=== PATIENT | male | born 1980 | race Caucasian/White ===

== ENCOUNTER 2020-09-14 15:49 | Emergency (ER) | payer BC, SELFPAY ==
[2020-09-14 15:50] VITALS: BP 149/119; PULSE 65; RESP 18; TEMP 36.4; O2SAT 98; BMI 39.0
--- NOTE | 2020-09-14 16:04 | CT_ITS ---
STUDY: CT ABDOMEN AND PELVIS WITHOUT CONTRAST REASON FOR EXAM: Male, 40 years old. LEFT FLANK PAIN X 2 DAYS. RADIATION DOSAGE (If Supplied By Facility): CTDIvol = ( 17.06 ) mGy, DLP = ( 1296.18 ) mGycm TECHNIQUE: Transaxial images were obtained from the dome of the diaphragm to the symphysis pubis without oral contrast, and without intravenous contrast. Sagittal and coronal images were reconstructed. Individualized dose optimization techniques were used for this CT. COMPARISON: None. FINDINGS: There is mild right lower lobe atelectasis.. The visualized portions of the heart are within normal limits. Small hiatal hernia is noted Liver is normal in size. There is a small solid nodule in the right lobe most likely representing hemangioma. This may be further assessed with MRI if clinically warranted. Bile ducts are not dilated. Contracted thick-walled gallbladder likely physiologic however if concern for gallbladder disease ultrasound recommended.. Normal spleen. Normal pancreas. Normal bilateral adrenal glands. Normal right kidney. Normal left kidney. Mild concentric thickening of the currie of the stomach possibly representing gastritis.. Normal small intestine. Normal colon. The appendix is visualized and appears normal. Normal abdominal aorta. Normal inferior vena cava. Normal retroperitoneum. Nonspecific enlargement of the prostate in association with incompletely distended thick-walled bladder.. Normal abdominal wall. Normal osseous structures. CT/Abdomen/Pelvis W IV Cont ONLY IMPRESSION: Findings which may be consistent with nonspecific gastritis.. No evidence for small bowel obstruction. Small solid nodule in the right lobe of the liver possibly representing hemangioma. This may be further assessed with MRI if indicated clinically. Nonspecific enlargement of prostate in association with incompletely distended thick-walled bladder of uncertain etiology or significance Electronically Signed: Paresh Hall MD at 17:55 EDT , Service support ,
--- NOTE | 2020-09-14 16:05 | ED.DCSUM_ITS ---
History of Present Illness Chief Complaint: Flank Pain Informant: Patient Onset: Days Context: Gradual Onset Timing: Continuous Narrative: Patient is a 40-year-old male history of hypertension presenting with 2 days of constant left-sided flank pain. Patient states sometimes radiates to his back. It is throbbing in nature. Patient notes it seems to be better when he lays on his left side and worse when he changes positions or is active. Notes last night he did have some chills and could not sleep all night because he could not get comfortable and the pain went resolved. Has not taken anything for the pain prior to arrival. He denies associated nausea, vomiting or GI symptoms. He denies any history of kidney stones. Denies any urinary symptoms such as hematuria, dysuria or frequency. He denies any pain in his testicles or genitalia. No other complaints at this time. Prior similar symptoms: Yes - Self resolved, couple months ago Past Medical History - Allergies and Home Meds Allergies/Adverse Reactions: Allergies No Known Allergies Allergy (Verified 09/14/20 15:51) Primary Care Physician: Valentin Pnio MD [Primary Care Provider] - Past Medical History: - - Hypertension Surgical History: - - Hernia repair Lives: With Family Review of Systems General: Denies: Chills, Fever, Sweats Eyes: Denies: Visual changes - bilaterally, Diplopia ENT: Denies: Rhinorrhea, Sore throat Cardiovascular: Denies: Chest pain, Palpitations Respiratory: Denies: Dyspnea, Cough, Dyspnea on exertion Gastrointestinal: Reports: Abdominal pain - Left flank. Denies: Nausea, Vomiting, Diarrhea, Melena, Hematochezia Genitourinary: Denies: Dysuria, Hematuria, Frequency Musculoskeletal: Denies: Back pain, Extremity Pain Skin: Denies: Rash, Wounds Neurological: Denies: Headache, Weakness, Numbness Physical Exam Vital Signs/Narrative: Vital Signs Temp Pulse Resp BP Pulse Ox 09/14/20 15:50 97.6 F L 65 18 149/119 H 98 Inital Vital Signs reviewed: Yes General: Well nourished, Well developed, No Acute Distress Head: Normocephalic, Atraumatic Eyes: Perrl, EOMI ENT: Moist mucous membranes, No rhinorrhea Neck: Supple, Nontender Cardiovascular: Regular rate, Regular rhythm, No murmurs Respiratory: No distress, CTA bilaterally, Chest nontender Abdomen: Soft, Nontender, Nondistended, Normal bowel sounds, - - Mild tenderness palpation of the left flank area with no appreciated mass or hernia palpated. No rebound tenderness.. Negative for: Guarding, Mass Back: Nontender, Normal Inspection. Negative for: CVA tenderness, Spinal tenderness Extremities: Nontender, No edema Skin: Normal color, No rash Neurological: Alert, Oriented x3, Cranial nerves II-XII grossly intact, Normal Strength, Normal Sensation Psychological: Normal affect, Normal Mood Diagnostic/Tx/Re-eval Clinical Impression(s) from Imaging Studies Abdomen/Pelvis CT 09/14/20 16:04 IMPRESSION: Findings which may be consistent with nonspecific gastritis.. No evidence for small bowel obstruction. Small solid nodule in the right lobe of the liver possibly representing hemangioma. This may be further assessed with MRI if indicated clinically. Nonspecific enlargement of prostate in association with incompletely distended thick-walled bladder of uncertain etiology or significance Electronically Signed: Paresh Hall MD at 17:55 EDT , Service support , Laboratory Data 09/14/20 09/14/20 09/14/20 16:18 16:18 16:18 WBC 7.5 RBC 5.01 Hgb 14.4 Hct 43.2 MCV 86.2 MCH 28.7 MCHC 33.3 RDW Std Deviation 49.4 H RDW Coeff of Cat 15.8 H Plt Count 365 MPV 9.7 Immature Gran % (Auto) 0.300 Neut % (Auto) 50.1 Lymph % (Auto) 33.0 [place] % (Auto) 11.6 H Eos % (Auto) 4.3 Baso % (Auto) 0.7 Absolute Neuts (auto) 3.8 Absolute Lymphs (auto) 2.47 Nucleated RBC % 0 Sodium 141 Potassium 3.8 Chloride 108 H Carbon Dioxide 27.0 Anion Gap 6 BUN 12 Creatinine 1.08 Estim Creat Clear Calc 94.90 Est GFR (MDRD) Af Amer 96 Est GFR (MDRD) Non-Af 80 BUN/Creatinine Ratio 11.1 Glucose 97 Calcium 8.8 Total Bilirubin 0.50 AST 18 ALT 32 Alkaline Phosphatase 82 Total Protein 7.1 Albumin 3.3 Globulin 3.8 Albumin/Globulin Ratio 0.9 Lipase 118 Urine Color Yellow Urine Clarity Sl. Cloudy Urine pH 6.5 Ur Specific [place] 1.015 Urine Protein Negative Urine Glucose (UA) Normal Urine Ketones Negative Urine Occult Blood 10 H Urine Nitrite Negative Urine Bilirubin Negative Urine Urobilinogen 1 H Ur Leukocyte Esterase Negative Urine RBC 0-5 SEEN Urine WBC 0 SEEN Ur Squamous Epith Cells 0-5 SEEN Urine Bacteria 0 SEEN Urine Mucus 0 SEEN - Medical Decision Making Evaluated for 2 days of left-sided flank pain. He appears nontoxic in no acute distress. He does have tenderness of his left flank area but no CVA tenderness. Presentation is mixed from muscle skeletal versus hernia versus kidney stone. CT of the abdomen pelvis with IV contrast is obtained which does not show any acute process that could explain the symptoms. Patient does have a couple incidental findings which he is informed of. The CT does show fibrosis and gastritis which is not where his pain is and I do not think this is related. Patient is initially given morphine in the ER for pain control with improvement. He is discharged home with NSAID therapy as I do suspect his symptoms might be more muscle skeletal nature. He does not have any signs of infection in his urine and does not have any significant abnormalities in his lab work. Patient is counseled to use heat to the area and on return precautions. He verbalizes agreement understand this plan. He is discharged home in stable condition. ED Disposition - Plan for ED Patient: Disposition: Home or Assisted Living Diagnosis: Flank pain, acute Instructions: ED Flank Pain Uncertain Cause Prescriptions: cycloBENZAPRine HCl [Flexeril] 10 mg PO TID PRN #20 tab PRN Reason: Muscle Spasm Transmission Status[facility] Ibuprofen [Motrin] 600 mg PO Q6H PRN PRN #20 tab PRN Reason: Pain Score 1-10/10 Transmission Status: Received by [facility] Referrals: Valentin Pino MD [Primary Care Provider] - Additional Instructions: The exact cause of your flank pain (left-sided abdominal pain) is not clear. Your CT did show a small lung nodule on your right liver that should be followed up with your primary care doctor. In addition you have some mild thickening of your bladder which is of no clear significance. Again please follow-up with your primary care doctor for this. Finally the CT showed some inflammation of your stomach, again I do not think this is related to your pain today.
[2020-09-14] MEDS: 0.9% Normal Saline 1,000 ML 1000 ML IV (16:17)
[2020-09-14] MEDS: Morphine 4 MG/ML Syringe IV (16:17)
[2020-09-14 16:23] LABS: Bacteria 0 SEEN /hpf (None Seen); Mucous, Urine 0 SEEN /hpf (<or=2+); White Blood Cells 0 SEEN /hpf (0-5)
[2020-09-14 16:27] LABS: Absolute Lymphocyte Count 2.47 X10^3/uL (0.83-4.51); Absolute Neutrophil Count 3.8 X10^3/uL (2.0-7.7); Basophil# 0.05 X10^3/uL; Basophil% 0.7 % (0-1); Eosinophil# 0.32 X10^3/uL; Eosinophils% 4.3 % (0-5); Hematocrit 43.2 % (40-54); Hemoglobin 14.4 g/dL (13.0-16.5); Lymphocyte # 2.47 X10^3/ul (4.0); Mean Corp Hgb Conc 33.3 g/dL (32-36); Mean Corpuscular Hgb 28.7 pg (27.0-32.0); Mean Corpuscular Volume 86.2 fL (80-94); Mean Platelet Vol. 9.7 fl (6.2-12.0); Monocyte# 0.87 X10^3/uL; Monocyte% 11.6 % (0-10); NRBC Flagged by Analyzer 0 % (0-5); Neutrophil # 3.76 X10^3/uL (2.7-7.7); Neutrophil % 50.1 % (47-70); Platelet Count 365 K/mm3 (150-450); RBC Distribution Width CV 15.8 % (11.6-14.6); RBC Distribution Width SD 49.4 fl (35.1-43.9); Red Blood Count 5.01 M/mm3 (4.6-6.2); White Blood Count 7.5 K/mm3 (4.4-11.0)
[2020-09-14 16:50] LABS: ALB/GLOB Ratio 0.9 RATIO (0.9-2.4); AST(SGOT) 18 U/L (15-37); Alanine Aminotransfer ALT/SGPT 32 U/L (16-61); Albumin, Serum 3.3 g/dL (3.2-5.0); Alkaline Phosphatase 82 U/L (45-117); Anion Gap 6 (5-15); BUN 12 mg/dL (7-18); BUN/Creat Ratio 11.1 RATIO (10-20); Calcium,Total 8.8 mg/dL (8.5-10.1); Chloride 108 mmol/L (98-107); Creatinine, Serum 1.08 mg/dL (0.70-1.30); EST Glomerular Filtration Rate 80 mL/min (>60); Est Glom Filt Rate - Afr Amer 96 mL/min (>60); Globulin 3.8 g/dL (2.2-4.2); Glucose 97 mg/dL (74-106); Lipase 118 U/L (73-393); Potassium 3.8 mmol/L (3.5-5.1); Protein, Total 7.1 g/dL (6.4-8.2); Sodium Level 141 mmol/L (136-145)
[2020-09-14 17:26] VITALS: BP 138/94; PULSE 60; RESP 16; O2SAT 99
[2020-09-14 18:17] LABS: Color, Urine Yellow (Yellow); Glucose, Dipstick Normal (Normal); Ketone-Dipstick Negative (Negative); Leukocyte Esterase-Dipstick Negative /ul (Negative); Nitrite-Dipstick Negative (Negative); Occult Blood-Urine 10 /ul (Negative); Protein-Dipstick Negative (Negative); Specific Gravity, Urine 1.015 (1.002-1.030); Urine Bilirubin Dipstick Negative (Negative); Urine Clarity Sl. Cloudy (Clear); Urine Urobilinogen 1 mg/dl (Normal); Urine pH 6.5 (5.0 - 8.0)
[2020-09-14 18:29] LABS: Red Blood Cells-Urine 0-5 SEEN /hpf (0-5); Squamous Epithelial Cells - UA 0-5 SEEN /hpf (0-5)
[2020-09-14] MEDS: cycloBENZAPRine HCl 10 MG Tablet PO (19:25)
[2020-09-14] MEDS: Ibuprofen 600 MG Tablet PO (19:25)
== END 2020-09-14 19:27 | disposition home or self-care (01) ==
PROVIDERS: Emergency Provider Emergency Medicine; PCP Family Medicine
DX: R10.9 Unspecified abdominal pain (principal); I10 Essential (primary) hypertension; Z79.899 Other long term (current) drug therapy
CPT/HCPCS: 74177; 80053; 81001; 83690; 85025; 96361; 96374; 99281; 99285; J7030; Q9967; A4216

== ENCOUNTER 2022-03-21 09:39 | Observation (INO) | payer BC, SELFPAY ==
[2022-03-21] VITALS (9 sets, daily range): BP systolic 135–203; BP diastolic 75–92; PULSE 68–89; RESP 16–18; TEMP 36.2–36.8; O2SAT 94–98; BMI 43.2; BMI 42.1
--- NOTE | 2022-03-21 09:51 | EKG12_ITS ---
Test Reason : HYPERTENSON Blood Pressure : / mmHG Vent. Rate : 076 BPM Atrial Rate : 076 BPM P-R Int : 158 ms QRS Dur : 102 ms QT Int : 400 ms P-R-T Axes : 053 014 191 degrees QTc Int : 450 ms Normal sinus rhythm Left ventricular hypertrophy with repolarization abnormality vs. myocardial ischemia Abnormal ECG Confirmed by PEGGY BUSTILLOS, MAHIN ([id number]), web content editor GERMAN MONTESINOS ([id number]) on 03/26/2022 8:46:44 AM Referred By: MALGORZATA Confirmed By:MAHIN WOODS MD
--- NOTE | 2022-03-21 09:52 | RAD_ITS ---
INDICATION: shortness of breath EXAMINATION/TECHNIQUE: X-RAY - XR Chest 1 View COMPARISON: None. FINDINGS: LINES/DEVICES: None. LUNGS: Prominence of the bronchovascular and interstitial lung markings is visualized bilaterally, peribronchial cuffing bilateral hilar prominence is seen, bilateral pleural effusions are visualized more prominent in the right, no evidence of pneumothorax or parenchymal lung mass. MEDIASTINUM AND CARDIOVASCULAR STRUCTURES: Cardiac silhouette is mildly enlarged. Central airways and mediastinal contour are unremarkable. BONES AND SOFT TISSUES: Mild degenerative bone changes are seen. RAD/Chest 1 View (Portable) IMPRESSION: Cardiomegaly, bronchovascular prominence and bilateral pleural effusions suggestive of congestive heart failure. Electronically Signed: Dimitrios Prieto MD at 10:24 EDT ,
[2022-03-21] MEDS: 0.9% Normal Saline 1,000 ML 1000 ML IV (10:01)
--- NOTE | 2022-03-21 10:02 | EX.ED.DYSGE1 ---
HPI <PIPPA Hirsch - Last Filed: 03/21/22 12:21> History of Present Illness Chief Complaint: Hypertension Narrative Narrative: 41-year-old male with history of hypertension presents to the emergency department with complaints of sweating, feeling anxious, hypertension. Patient was recently started on atenolol?chlorthalidone for his hypertension, patient does have history of hypertension however is unable to see a doctor the last 2 years. Patient started this dose 3 days ago, he also had other pain, patient was placed on a steroid Medrol Dosepak as well as cyclobenzaprine. Patient is on his third day of 60 mg of prednisone, states this morning woke up feeling anxious, sweaty, more shortness of breath on exertion, he took his blood pressure at work and it was elevated. Patient denies any chest pain, patient denies any recent travel, history of PE or DVTs. Denies any recent surgery PFS <PIPPA Hirsch - Last Filed: 03/21/22 12:21> [facility] Medical History (Updated 03/21/22 @ 12:21 by PIPPA Hirsch) Hypertension Home Medications atenolol-chlorthalidone 1 tab PO DAILY 09/14/20 [History Last Taken 03/20/22 17:00] cyclobenzaprine 10 mg PO TID PRN #20 tab 09/14/20 [Rx Last Taken 03/21/22 06:30] Allergy/AdvReac Type Severity Reaction Status Date / Time No Known Allergies Allergy Verified 03/21/22 09:39 Surgical History (Updated 03/21/22 @ 10:13 by Parris Ellison RN) Hx of hernia repair Social History Smoking Status: Current every day smoker tobacco type: cigarettes ROS <PIPPA Hirsch - Last Filed: 03/21/22 12:21> ROS ED ROS Narrative Constitutional: Negative for fever, chills, weight loss, weakness. Positive for diaphoresis Eyes: Negative for vision loss, vision change, double vision ENT: Negative for any sore throat, ear pain, congestion Cardiovascular: Negative for any chest pain, tightness, palpitations, racing heartbeat Respiratory: Negative for any cough, sputum production, hemoptysis, shortness of breath, orthopnea. Positive shortness of breath on exertion Gastrointestinal: Negative for any abdominal pain, nausea, vomiting, diarrhea, constipation, blood in stool, blood in vomit : Negative for any urinary frequency, incontinence, dysuria, retention, blood in urine Muscle skeletal: Negative for any muscle joint pain, stiffness, myalgias, arthralgias, neck pain, back pain Neurological: Negative for any headache, dizziness, syncope, numbness or tingling Skin: Negative for any rashes, lumps, itching, abrasions, lacerations Psychiatric: Negative for any depression, stress, suicidal ideation, homicidal ideation. Positive for a feeling of anxiety Hematologic: Negative for any easy bruising, excessive bruising, easy bleeding Allergies: Negative for any eczema, hives, rash EXAM <PIPPA Hirsch - Last Filed: 03/21/22 12:21> Physical Exam Narrative Exam Narrative: Vital signs reviewed. Patient is hypertensive with a blood pressure 203/89. Patient does appear to be diaphoretic, patient feels a feeling of anxiety. HEET: Head normocephalic atraumatic, TMs clear bilaterally. Posterior pharynx is clear, moist mucous membranes. Nares clear bilaterally. Neck: Supple with no lymphadenopathy or tenderness. No signs of meningismus, negative jolt sign. Cardiac: Regular rate and rhythm no murmurs gallops or rubs, equal peripheral pulses bilaterally. Respiratory: Lungs clear to auscultation bilaterally. No chest tenderness. Abdomen: Soft, nontender, nondistended. No abdominal bruit or pulsatile masses. No hepatosplenomegaly Extremities: No peripheral edema, no signs of gross trauma or deformity. Active full range of motion of all extremities. Neuro: Cranial nerves II through XII intact, no focal neurological deficits. Skin: Clean dry and intact with no rash, purpura, petechiae, vesicles or pustules. Backslash flank: No CVA tenderness, no midline spinal tenderness, no deformity. Psych: Normal mood and affect. No SI, HI or acute psychosis. Const Vital Signs: 03/21/22 10:11 03/21/22 10:36 03/21/22 10:42 Pulse Rate 79 Respiratory Effort Normal Non-Labored Respiratory Pattern Normal Blood Pressure 175/92 H 175/92 H Blood Pressure Mean 119 Positive well nourished, well developed and obese General Appearance ED: well developed Nutritional Appearance: obese <Dr. Kristin Hirsch, DO - Last Filed: 03/22/22 10:13> Physical Exam Const Vital Signs: 03/21/22 10:11 03/21/22 10:36 03/21/22 10:42 Pulse Rate 79 Respiratory Effort Normal Non-Labored Respiratory Pattern Normal Blood Pressure 175/92 H 175/92 H Blood Pressure Mean 119 MDM <Bud Cleary SKILLED NURSING CASE MANAGER-C - Last Filed: 03/21/22 12:21> [facility] Narrative Medical decision making narrative: Patient arrives diaphoretic, hypertensive, patient states to feel shortness of breath with any sort of movement. Patient did receive a full cardiac exam. Patient's CBC shows a leukocytosis of 15.1, this could be secondary to his recent steroid use. Patient's chemistries are unremarkable, troponin was 31, patient's TSH does show a decreased level of 0.29, BNP was unremarkable. Patient's urinalysis was unremarkable. Patient's chest x-ray did show some cardiomegaly with bronchovascular prominence and bilateral pleural effusions suggestive of congestive heart failure. Patient also on EKG does show normal sinus rhythm however does have ST depression in leads I, aVL, V3 as well as V6. These are new from a previous EKG which occurred in 2006. At this time I do believe the patient is in need of admission for further cardiac work-up. I did speak with Dr. Simpson. Patient be admitted to PCU Lab Data Labs: Laboratory Results - last 24 hr 03/21/22 03/21/22 03/21/22 10:00 10:00 10:00 WBC 15.1 H RBC 5.29 Hgb 15.2 Hct 45.3 MCV 85.6 MCH 28.7 MCHC 33.6 RDW Std Deviation 48.4 H RDW Coeff of Cat 15.5 H Plt Count 385 MPV 10.1 Immature Gran % (Auto) 0.500 Neut % (Auto) 91.4 H Lymph % (Auto) 6.0 L [place] % (Auto) 2.0 Eos % (Auto) 0.0 Baso % (Auto) 0.1 Absolute Neuts (auto) 13.8 H Absolute Lymphs (auto) 0.91 Nucleated RBC % 0 D-Dimer Quant (PE/DVT) Sodium 138 Potassium 3.4 L Chloride 103 Carbon Dioxide 28.0 Anion Gap 7 BUN 9 Creatinine 1.14 Estim Creat Clear Calc 88.99 Est GFR (MDRD) Af Amer 90 Est GFR (MDRD) Non-Af 74 BUN/Creatinine Ratio 7.9 L Glucose 123 H Calcium 8.9 Troponin I High Sens 31 B-Natriuretic Peptide 36.7 TSH 0.29 L Free T4 Free T3 pg/dL Urine Color Urine Clarity Urine pH Ur Specific [place] Urine Protein Urine Glucose (UA) Urine Ketones Urine Occult Blood Urine Nitrite Urine Bilirubin Urine Urobilinogen Ur Leukocyte Esterase Urine RBC Urine WBC Ur Squamous Epith Cells Urine Bacteria Urine Mucus 03/21/22 03/21/22 03/21/22 10:00 10:20 10:20 WBC RBC Hgb Hct MCV MCH MCHC RDW Std Deviation RDW Coeff of Cat Plt Count MPV Immature Gran % (Auto) Neut % (Auto) Lymph % (Auto) [place] % (Auto) Eos % (Auto) Baso % (Auto) Absolute Neuts (auto) Absolute Lymphs (auto) Nucleated RBC % D-Dimer Quant (PE/DVT) < 0.27 L Sodium Potassium Chloride Carbon Dioxide Anion Gap BUN Creatinine Estim Creat Clear Calc Est GFR (MDRD) Af Amer Est GFR (MDRD) Non-Af BUN/Creatinine Ratio Glucose Calcium Troponin I High Sens B-Natriuretic Peptide TSH Free T4 0.99 Free T3 pg/dL 3.1 Urine Color Straw Urine Clarity Clear Urine pH 6.5 Ur Specific [place] 1.010 Urine Protein Negative Urine Glucose (UA) Normal Urine Ketones Negative Urine Occult Blood Negative Urine Nitrite Negative Urine Bilirubin Negative Urine Urobilinogen Normal Ur Leukocyte Esterase Negative Urine RBC 0 SEEN Urine WBC 0 SEEN Ur Squamous Epith Cells 0 SEEN Urine Bacteria 0 SEEN Urine Mucus 0 SEEN Radiography Diagnostic Testing: Clinical Impression(s) from Imaging Studies Chest X-Ray 03/21/22 09:52 IMPRESSION: Cardiomegaly, bronchovascular prominence and bilateral pleural effusions suggestive of congestive heart failure. Electronically Signed: Dimitrios Prieto MD at 10:24 EDT , EKG Normal sinus rhythm: Attestation: I personally reviewed and interpreted this EKG as follows: Comments: Normal sinus rhythm, left ventricular hypertrophy with repolarization abnormality, ST depression, rate of 76 bpm, [place] interval 158 ms, QRS duration 102 ms. <Dr. Kristin Hirsch, DO - Last Filed: 03/22/22 10:13> [facility] Narrative Medical decision making narrative: I have personally performed a face to face assessment of the patient and have reviewed the ARCHIE Note. I performed a substantive portion of the visit including all aspects of the following. My portillo findings include: History is patient is a 41 year old male presenting with worsening shortness of breath and dyspnea on exertion. This has been ongoing for a few days. In addition he was recently started on atenolol/chlorthalidone for HTN. Has chronic LE edema which he feels is improved. Exam is Patient is diaphoretic. NC/AT. Moist mucosal membranes. Neck is supple, no JVD. Heart RRR, no murmur. Lungs are clear to auscultation and no crackles appreciated. Abd soft and nontender. No focal neuro deficits. He does have bilateral nonpitting edema. Medical Decision Making Patient evaluated for new WILD. He is significantly hypertensive and ECG shows significant T wave inversions and LVH pattern. THis is new. CXR shows cardiomegaly and bilateral pleural effusions. D Dimer is negative and he has no PE risk factors. TSH is obtained as he has exophthalmos on exam. This is low, but free T3/T4 are normal. He is significantly hypertensive in the ED. Patient is given IV lasix and nitropaste in the ED for blood pressure and concern for new onset CHF. Admitted to PCU. Other additions or changes: [None] Lab Data Labs: Laboratory Results - last 24 hr 03/21/22 03/21/22 03/21/22 10:00 10:00 10:00 WBC 15.1 H RBC 5.29 Hgb 15.2 Hct 45.3 MCV 85.6 MCH 28.7 MCHC 33.6 RDW Std Deviation 48.4 H RDW Coeff of Cat 15.5 H Plt Count 385 MPV 10.1 Immature Gran % (Auto) 0.500 Neut % (Auto) 91.4 H Lymph % (Auto) 6.0 L [place] % (Auto) 2.0 Eos % (Auto) 0.0 Baso % (Auto) 0.1 Absolute Neuts (auto) 13.8 H Absolute Lymphs (auto) 0.91 Nucleated RBC % 0 D-Dimer Quant (PE/DVT) Sodium 138 Potassium 3.4 L Chloride 103 Carbon Dioxide 28.0 Anion Gap 7 BUN 9 Creatinine 1.14 Estim Creat Clear Calc 88.99 Est GFR (MDRD) Af Amer 90 Est GFR (MDRD) Non-Af 74 BUN/Creatinine Ratio 7.9 L Glucose 123 H Calcium 8.9 Troponin I High Sens 31 B-Natriuretic Peptide 36.7 TSH 0.29 L Free T4 Free T3 pg/dL Urine Color Urine Clarity Urine pH Ur Specific [place] Urine Protein Urine Glucose (UA) Urine Ketones Urine Occult Blood Urine Nitrite Urine Bilirubin Urine Urobilinogen Ur Leukocyte Esterase Urine RBC Urine WBC Ur Squamous Epith Cells Urine Bacteria Urine Mucus 03/21/22 03/21/22 03/21/22 10:00 10:20 10:20 WBC RBC Hgb Hct MCV MCH MCHC RDW Std Deviation RDW Coeff of Cat Plt Count MPV Immature Gran % (Auto) Neut % (Auto) Lymph % (Auto) [place] % (Auto) Eos % (Auto) Baso % (Auto) Absolute Neuts (auto) Absolute Lymphs (auto) Nucleated RBC % D-Dimer Quant (PE/DVT) < 0.27 L Sodium Potassium Chloride Carbon Dioxide Anion Gap BUN Creatinine Estim Creat Clear Calc Est GFR (MDRD) Af Amer Est GFR (MDRD) Non-Af BUN/Creatinine Ratio Glucose Calcium Troponin I High Sens B-Natriuretic Peptide TSH Free T4 0.99 Free T3 pg/dL 3.1 Urine Color Straw Urine Clarity Clear Urine pH 6.5 Ur Specific [place] 1.010 Urine Protein Negative Urine Glucose (UA) Normal Urine Ketones Negative Urine Occult Blood Negative Urine Nitrite Negative Urine Bilirubin Negative Urine Urobilinogen Normal Ur Leukocyte Esterase Negative Urine RBC 0 SEEN Urine WBC 0 SEEN Ur Squamous Epith Cells 0 SEEN Urine Bacteria 0 SEEN Urine Mucus 0 SEEN Radiography Diagnostic Testing: Clinical Impression(s) from Imaging Studies Chest X-Ray 03/21/22 09:52 IMPRESSION: Cardiomegaly, bronchovascular prominence and bilateral pleural effusions suggestive of congestive heart failure. Electronically Signed: Dimitrios Prieto MD at 10:24 EDT , Discharge Plan Dx/Rx/DC Orders Clinical Impression: Hypertension, Congestive heart failure, Acute electrocardiogram changes, Diaphoresis, SOB (shortness of breath) on exertion Disposition Disposition: Acute Care [facility] Discharge Date/Time: 03/21/22 13:21
[2022-03-21 10:07] LABS: Absolute Lymphocyte Count 0.91 X10^3/uL (0.83-4.51); Absolute Neutrophil Count 13.8 X10^3/uL (2.0-7.7); Basophil# 0.02 X10^3/uL; Basophil% 0.1 % (0-1); Hematocrit 45.3 % (40-54); Hemoglobin 15.2 g/dL (13.0-16.5); Lymphocyte # 0.91 X10^3/ul (0.83-4.51); Mean Corp Hgb Conc 33.6 g/dL (32-36); Mean Corpuscular Hgb 28.7 pg (27.0-32.0); Mean Corpuscular Volume 85.6 fL (80-94); Mean Platelet Vol. 10.1 fl (6.2-12.0); NRBC Flagged by Analyzer 0 % (0-5); Neutrophil # 13.83 X10^3/uL (2.7-7.7); Neutrophil % 91.4 % (47-70); Platelet Count 385 K/mm3 (150-450); RBC Distribution Width CV 15.5 % (11.6-14.6); RBC Distribution Width SD 48.4 fl (35.1-43.9); Red Blood Count 5.29 M/mm3 (4.6-6.2); White Blood Count 15.1 K/mm3 (4.4-11.0)
[2022-03-21 10:26] LABS: Bacteria 0 SEEN /hpf (None Seen); Mucous, Urine 0 SEEN /hpf (<or=2+); Red Blood Cells-Urine 0 SEEN /hpf (0-5); Squamous Epithelial Cells - UA 0 SEEN /hpf (0-5); White Blood Cells 0 SEEN /hpf (0-5)
[2022-03-21 10:28] LABS: Color, Urine Straw (Yellow); Glucose, Dipstick Normal (Normal); Ketone-Dipstick Negative (Negative); Leukocyte Esterase-Dipstick Negative /ul (Negative); Nitrite-Dipstick Negative (Negative); Occult Blood-Urine Negative /ul (Negative); Protein-Dipstick Negative (Negative); Urine Bilirubin Dipstick Negative (Negative); Urine Clarity Clear (Clear); Urine Urobilinogen Normal (Normal); Urine pH 6.5 (5.0 - 8.0)
[2022-03-21 10:29] LABS: Anion Gap 7 (5-15); BUN 9 mg/dL (7-18); BUN/Creat Ratio 7.9 RATIO (10-20); Calcium,Total 8.9 mg/dL (8.5-10.1); Chloride 103 mmol/L (98-107); Creatinine, Serum 1.14 mg/dL (0.70-1.30); EST Glomerular Filtration Rate 74 mL/min (>60); Est Glom Filt Rate - Afr Amer 90 mL/min (>60); Estimated Creatinine Clearance 88.99 ml/min; Glucose 123 mg/dL (74-106); Potassium 3.4 mmol/L (3.5-5.1); Sodium Level 138 mmol/L (136-145); Thyroid Stim Hormone (TSH) 0.29 uIU/mL (0.358-3.74); Troponin-I HS 31 pg/mL (3.0-78.0)
[2022-03-21] MEDS: Furosemide 40 MG/4 ML Vial IV (10:41)
[2022-03-21] MEDS: Nitroglycerin Oint 1 INCH PACKET TD (10:42)
[2022-03-21 11:02] LABS: BNP,B-Type NATRIURETIC PEPTIDE 36.7 pg/mL (0-100)
[2022-03-21 11:07] LABS: Free T3 3.1 pg/mL (2.18-3.98); T4 Free Direct 0.99 ng/dL (0.76-1.46)
[2022-03-21 11:53] LABS: D-Dimer Quantitative (DVT/PE) < 0.27 FEU/ug/m (0.27-0.49)
--- NOTE | 2022-03-21 12:04 | HP.PCM.HOS_ITS ---
HPI - General General Date of Admission: 03/21/22 HPI Narrative FELECIA RAO, is a 41 M with a PMH as outlined who presents via the ED on 03/21/2022 with a complaint of increased sweating and feeling anxious. He also had shortness of breath worsened with exertion. He was recently started on atenolol and chlorthalidone for hypertension. He hadnt seen a doctor in a long time, and was only started on his meds about 3 days ago. He was also started on a medrol dose pack recently for back pain as well as Flexeril. He said he woke up feeling anxious and sweaty and felt more short of breath. His blood pressure was also markedly elevated so he decided to come into the ED. He denied any ruby st pain, palpitations, dizziness, nausea or vomiting. Review of systems otherwise negative. Blood pressure on admission in the ED was 203/89 and at time of review had come down to 175/92. Temperature was 97.1 and pulse rate was 79. Respirate rate was 17 and he was saturating at 99% on room air. CBC showed hemoglobin of 15.2 and WBC of 15.1 as well as platelets of 385. BNP was unremarkable. Urinalysis showed no evidence of UTI. Chest x-ray showed cardiomegaly with bronchovascular prominence and bilateral pleural effusions suggestive of congestive heart failure. BNP was only 36.7. He has been admitted to be managed for hypertensive emergency. [facility] Medical History (Updated 03/21/22 @ 12:21 by PIPPA Hirsch) Hypertension Home Medications atenolol-chlorthalidone 1 tab PO DAILY 09/14/20 [History Last Taken Unknown] cyclobenzaprine 10 mg PO TID PRN #20 tab 09/14/20 [Rx Last Taken Unknown] ibuprofen 600 mg PO Q6H PRN PRN #20 tab 09/14/20 [Rx Last Taken Unknown] Allergy/AdvReac Type Severity Reaction Status Date / Time No Known Allergies Allergy Verified 03/21/22 09:39 Surgical History (Updated 03/21/22 @ 10:13 by Parris Ellison RN) Hx of hernia repair Social History Smoking Status: Current every day smoker tobacco type: cigarettes ROS Constitutional Constitutional: Denies anorexia, chills, fatigue, fever(s) or weakness Eyes Eyes: Denies change in vision ENT HEENT: Denies dysphagia or ear pain Cardiovascular Cardiovascular: Reports dyspnea on exertion; Denies chest pain, edema, lightheadedness, orthopnea, palpitations, paroxysmal nocturnal dyspnea, rapid heart rate or syncope Respiratory/Chest Respiratory/Chest: Reports dyspnea, productive cough, shortness of breath at rest and shortness of breath with exertion; Denies cough, excessive phlegm produ ction, hemoptysis or wheezing Gastrointestinal Gastrointestinal: Denies abdominal pain Genitourinary Genitourinary: Denies dysuria Neurologic Neurologic: Denies confusion, dizziness, focal weakness or headache(s) Psychiatric Psychiatric: Denies anxiety or depression Endocrine Endocrinology: Denies change in body appearance Hematologic/Lymphatic Hematologic/Lymphatic: Denies anemia Allergic/Immunologic Allergic/Immunologic: Denies asthma Vital Signs Vital Signs Vital Signs: 03/21/22 09:40 03/21/22 10:11 03/21/22 10:36 Temperature 97.1 F L Temperature Source Temporal Pulse Rate 89 Respiratory Rate 17 Respiratory Effort Normal Non-Labored Respiratory Pattern Normal Blood Pressure 203/89 H 175/92 H Blood Pressure Mean 127 119 Oxygen Delivery Method Room Air 03/21/22 10:42 Temperature Temperature Source Pulse Rate 79 Respiratory Rate Respiratory Effort Respiratory Pattern Blood Pressure 175/92 H Blood Pressure Mean Oxygen Delivery Method Weight Weight: 309 lb 11.991 oz Body Mass Index (BMI) 43.2 Physical Exam Const alert and oriented x3 Constitutional Narrative: morbid obesity General Appearance: cooperative HEENT normocephalic, head/scalp atraumatic, hearing grossly normal bilaterally, moist oral mucous membranes and oropharynx normal Eyes PERRL, EOMs intact bilaterally and conjunctivae normal Neck no lymphadenopathy Resp Resp Narrative: mildly diminished breath sounds bibasally, no wheezes or crackles. On room air Cardio regular rate, regular rhythm, S1 normal heart sound, S2 normal heart sound and no murmurs GI normal to inspection, nondistended, normoactive bowel sounds Extremity normal to inspection, full ROM and no clubbing, cyanosis or edema Peripheral Pulses: Yes pulses 2+ throughout Skin no rashes or lesions noted Neuro oriented x3, CN's II-XII intact bilaterally and moves all extremities Sensorium / Orientation: awake and alert Psych affect normal Results Lab / Micro Data Result Diagrams: 03/21/22 10:00 03/21/22 10:00 Labs: Laboratory Results - last 24 hr 03/21/22 10:00: WBC 15.1 H, RBC 5.29, Hgb 15.2, Hct 45.3, MCV 85.6, MCH 28.7, MCHC 33.6, RDW Std Deviation 48.4 H, RDW Coeff of Cat 15.5 H, Plt Count 385, MPV 10.1, Immature Gran % (Auto) 0.500, Neut % (Auto) 91.4 H, Lymph % (Auto) 6.0 L, [place] % (Auto) 2.0, Eos % (Auto) 0.0, Baso % (Auto) 0.1, Absolute Neuts (auto) 13.8 H, Absolute Lymphs (auto) 0.91, Nucleated RBC % 0 03/21/22 10:00: Sodium 138, Potassium 3.4 L, Chloride 103, Carbon Dioxide 28.0, Anion Gap 7, BUN 9, Creatinine 1.14, Estim Creat Clear Calc 88.99, Est GFR (MDRD) Af Amer 90, Est GFR (MDRD) Non-Af 74, BUN/Creatinine Ratio 7.9 L, Glucose 123 H, Calcium 8.9, Troponin I High Sens 31, TSH 0.29 L 03/21/22 10:00: B-Natriuretic Peptide 36.7 03/21/22 10:00: Free T4 0.99, Free T3 pg/dL 3.1 03/21/22 10:20: Urine Color Straw, Urine Clarity Clear, Urine pH 6.5, Ur Specific Lane 1.010, Urine Protein Negative, Urine Glucose (UA) Normal, Urine Ketones Negative, Urine Occult Blood Negative, Urine Nitrite Negative, Urine Bilirubin Negative, Urine Urobilinogen Normal, Ur Leukocyte Esterase Negative, Urine RBC 0 SEEN, Urine WBC 0 SEEN, Ur Squamous Epith Cells 0 SEEN, Urine Bacteria 0 SEEN, Urine Mucus 0 SEEN 03/21/22 10:20: D-Dimer Quant (PE/DVT) < 0.27 L Micro: Microbiology 03/21/22 10:50 Nasal Secretion SARS-CoV-2 & FLU Antigen (Rapid) - Final Radiology Impression Chest X-Ray 03/21/22 09:52 IMPRESSION: Cardiomegaly, bronchovascular prominence and bilateral pleural effusions suggestive of congestive heart failure. Electronically Signed: Dimitrios Prieto MD at 10:24 EDT , Assessment & Plan Assessment/Plan (1) Hypertension: PLAN: #Hypertensive emergency * Admit to PCU. Patient's blood pressure was over 200 systolic on admission but subsequently trended downward. He also had associated shortness of breath. * EKG showed left ventricular hypertrophy with repolarization abnormalities but did not show any acute ST changes. * Admit to PCU with telemetry. Resume BP meds; on atenolol and chlorthalidone * IV hydralazine as needed for blood pressure more than 160/110 * Get 2D echo. * Chest x-ray showed cardiomegaly and bronchovascular prominence and bilateral pleural effusions suggestive of congestive heart failure. We will also diures e with IV Lasix and await echo. BNP was only 36, so I suspect this was likely pulmonary edema from hypertensive emergency * #Probable sleep apnea and obesity hypoventilation syndrome * Patient is quite morbidly obese and his says he snores a lot and has apneic periods as well * Will benefit from follow-up with pulmonology on outpatient basis to be worked up for sleep apnea. * #Proptosis * Patient has quite significant proptosis. States his eyes of always been like that. Will check TSH as a precaution. * DVT prophylaxis: Lovenox CODE STATUS: Full code * Patient counseled extensively about different types of CODE STATUS including full code, DNR CCA and DNR CCA. Patient elects to be full code. * Total [id number] time 16 minutes. Charges/Coding Visit Charges Inpatient E&M: 20743 Init Hosp L3 Procedures Hospitalists Procedures: 41322 Advncd Care Plan 30 Min
--- NOTE | 2022-03-21 14:15 | ECHOCS_ITS ---
Reason For Study: HYPERTENSION Procedure This was a 2D Doppler, Color Flow transthoracic echocardiogram. The study was technically difficult. Exam performed portable in patient room. Left Ventricle Normal LV size. Left ventricular systolic function is hyperdynamic. The estimated ejection fraction is 75 %. No evidence for diastolic dysfunction. No regional wall motion abnormalities noted. Right Ventricle Normal RV size. Normal systolic function. Atria Normal left atrium. Normal right atrium. No doppler evidence for ASD. Mitral Valve There is no mitral valve stenosis. No mitral valve insufficiency. Tricuspid Valve There is no tricuspid stenosis. Unable to estimate RV systolic pressure due to inadequate jet, pulmonary artery pressure probably normal. Aortic Valve Trisinus/trileaflet aortic valve. There is no aortic stenosis. No aortic valve insufficiency. Pulmonic Valve There is no pulmonic valvular stenosis. No pulmonic valve insufficiency. Great Vessels Normal aortic root. Pericardium/Pleural No pericardial effusion. Medication Diluted definity 5ml given slow IV push to enhance endocardial definition. MMode/2D Measurements & Calculations LVIDd: 4.4 cm IVSd: 1.6 cm Ao root diam: 3.1 cm LVIDs: 2.9 cm LVPWd: 1.8 cm FS: 32.9 % LAV(MOD-bp): 40.4 ml LVAd ap4: 30.8 cm2 SV(MOD-sp4): 63.2 ml LAV(MOD-bp) Indexed: 16.1 ml/m2 LVLd ap4: 8.0 cm LAV(MOD-sp2): 43.0 ml EDV(MOD-sp4): 97.2 ml LAV(MOD-sp4): 41.5 ml EDV(sp4-el): 100.6 ml LVAs ap4: 16.4 cm2 LVLs ap4: 6.5 cm ESV(MOD-sp4): 33.9 ml ESV(sp4-el): 35.4 ml EF(MOD-sp4): 65.1 % EF(sp4-el): 64.9 % SV(sp4-el): 65.3 ml LA A4 area: 16.7 cm2 LA dimension(2D): 3.5 cm RA A4 area: 13.3 cm2 Time Measurements MV dec time: 0.25 sec Doppler Measurements & Calculations MV E max edgar: 57.6 cm/sec Lat Peak E' Edgar: 5.0 cm/sec Med Peak E' Edgar: 6.8 cm/sec MV A max edgar: 67.2 cm/sec E/E' lat: 11.4 E/E' med: 8.5 MV E/A: 0.86 Ao V2 max: 163.4 cm/sec LV V1 max: 140.8 cm/sec PA V2 max: 118.1 cm/sec Ao max P.7 mmHg LV V1 max P.9 mmHg ECHO/Echo Complete W/ Contrast Interpretation Summary Left ventricular systolic function is hyperdynamic. The estimated ejection fraction is 75 %. No evidence for diastolic dysfunction. Ordering Physician: Amanda Simpson Referring Physician: TAINA POSADAS Performed By: Maria Teresa Castillo RDCS
[2022-03-21 15:49] LABS: Troponin-I HS 17 pg/mL (3.0-78.0)
[2022-03-21 15:51] LABS: Hemoglobin A1c 6.3 % (3.8-5.6)
[2022-03-21 16:54] LABS: Cholesterol 179 mg/dL (200); High Density Lipoprotein 57 mg/dL; Thyroid Stim Hormone (TSH) 0.29 uIU/mL (0.358-3.74); Triglycerides 70 mg/dL; Troponin-I HS 14 pg/mL (3.0-78.0); Very Low Density Lipoprotein 14 mg/dL (5-40)
[2022-03-21] MEDS: Enoxaparin 40 MG/0.4 ML Syringe SC (20:25)
[2022-03-22 02:04] VITALS: BP 123/78; PULSE 57; RESP 16; TEMP 36.2; O2SAT 97
[2022-03-22 03:11] VITALS: PULSE 65
[2022-03-22 05:45] LABS: Absolute Lymphocyte Count 4.12 X10^3/uL (0.83-4.51); Absolute Neutrophil Count 5.6 X10^3/uL (2.0-7.7); Basophil# 0.04 X10^3/uL; Basophil% 0.4 % (0-1); Eosinophil# 0.19 X10^3/uL; Eosinophils% 1.7 % (0-5); Hematocrit 42.8 % (40-54); Lymphocyte # 4.12 X10^3/ul (0.83-4.51); Lymphocyte % 37.2 % (19-41); Mean Corp Hgb Conc 32.7 g/dL (32-36); Mean Corpuscular Volume 85.6 fL (80-94); Mean Platelet Vol. 9.7 fl (6.2-12.0); Monocyte% 9.9 % (0-10); NRBC Flagged by Analyzer 0 % (0-5); Neutrophil % 50.4 % (47-70); Platelet Count 308 K/mm3 (150-450); RBC Distribution Width CV 16.3 % (11.6-14.6); RBC Distribution Width SD 50.6 fl (35.1-43.9); White Blood Count 11.1 K/mm3 (4.4-11.0)
[2022-03-22 06:15] LABS: Anion Gap 5 (5-15); BUN 20 mg/dL (7-18); BUN/Creat Ratio 18.3 RATIO (10-20); Calcium,Total 8.3 mg/dL (8.5-10.1); Chloride 103 mmol/L (98-107); Creatinine, Serum 1.09 mg/dL (0.70-1.30); EST Glomerular Filtration Rate 78 mL/min (>60); Est Glom Filt Rate - Afr Amer 95 mL/min (>60); Estimated Creatinine Clearance 93.07 ml/min; Glucose 101 mg/dL (74-106); Potassium 3.6 mmol/L (3.5-5.1); Sodium Level 139 mmol/L (136-145)
[2022-03-22 06:59] VITALS: PULSE 66
[2022-03-22 07:14] VITALS: O2SAT 95
[2022-03-22 08:05] VITALS: BP 133/76; PULSE 62; RESP 16; TEMP 36.9; O2SAT 98
[2022-03-22] MEDS: Atenolol 50 MG Tablet PO (08:54)
[2022-03-22] MEDS: Chlorthalidone 50 MG Tablet 25 MG PO (08:54)
--- NOTE | 2022-03-22 11:02 | DS.PCM_ITS ---
Providers Date of Admission: 03/21/22 Primary Care Physician: Taina Posadas MD Reason For Visit: HYPERTENSIVE EMERGENCY Diagnosis Discharge Diagnosis (1) Hypertension: Status: Chronic Code(s): I10 - Essential (primary) hypertension Medications at Discharge Home Medications atenolol-chlorthalidone 1 tab PO DAILY 09/14/20 cyclobenzaprine 10 mg PO TID PRN #20 tab 09/14/20 metformin 850 mg PO BID #60 tab 03/22/22 Hospital Course Operations None Procedures 2-D Echocardiogram Summary of Care Provided Minutes Spent on Discharge: 40 Hospital Course: FELECIA RAO, is a 41 M with a PMH as outlined who presents via the ED on 03/21/2022 with a complaint of increased sweating and feeling anxious. He also had shortness of breath worsened with exertion. He was recently started on atenolol and chlorthalidone for hypertension. He hadnt seen a doctor in a long time, and was only started on his meds about 3 days ago. He was also started on a medrol dose pack recently for back pain as well as Flexeril. He said he woke up feeling anxious and sweaty and felt more short of breath. His blood pressure was also markedly elevated so he decided to come into the ED. He denied any chest pain, palpitations, dizziness, nausea or vomiting. Review of systems otherwise negative. Blood pressure on admission in the ED was 203/89 and at time of review had come down to 175/92. Temperature was 97.1 and pulse rate was 79. Respirate rate was 17 and he was saturating at 99% on room air. CBC showed hemoglobin of 15.2 and WBC of 15.1 as well as platelets of 385. BNP was unremarkable. Urinalysis showed no evidence of UTI. Chest x-ray showed cardiomegaly with bronchovascular prominence and bilateral pleural effusions suggestive of congestive heart failure. BNP was only 36.7. He was admitted to be managed for hypertensive emergency. Patient's blood pressure improved after he was put on his blood pressure medications. He had 2D echo which showed EF of 75% with hyperdynamic left ventricular systolic function. There were no regional wall motion abnormalities noted. There was also no evidence of diastolic dysfunction. Patient felt well and had an uneventful hospital stay. He was discharged home on 03/22/2022 and counseled to be compliant with his medication. He was also referred to pulmonology for evaluation for sleep apnea. Of note, his A1c was 6.3 and so he was started on p.o. metformin 850 mg twice daily. His TSH was mildly suppressed at 0.29 but free T4 was within normal limit at 1.02 making the subclinical hyperthyroidism. He was therefore counseled to follow-up with his PCP on outpatient basis. Patient was seen and examined prior to discharge. He had no complaints and felt much better. He had an uneventful night and review of systems otherwise negative. Labs and vitals reviewed. Home medication reviewed and reconciled. 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 On room air Cardio regular rate, regular rhythm, S1 normal heart sound, S2 normal heart sound and no murmurs GI normal to inspection, nondistended, normoactive bowel sounds Extremity normal to inspection, full ROM and no clubbing, cyanosis or edema Skin no rashes or lesions noted Neuro oriented x3, CN's II-XII intact bilaterally and moves all extremities Sensorium / Orientation: awake and alert Psych affect normal Weight / BMI Weight Weight: 302 lb 0.533 oz Body Mass Index (BMI) 42.1 ABG / Lab / Microbiology Data Result Diagrams: 03/22/22 05:00 03/22/22 05:00 Laboratory: Laboratory Results - last 24 hr 03/21/22 10:00: B-Natriuretic Peptide 36.7 03/21/22 10:00: Free T4 0.99, Free T3 pg/dL 3.1 03/21/22 10:20: D-Dimer Quant (PE/DVT) < 0.27 L 03/21/22 15:20: Troponin I High Sens 17 03/21/22 15:20: Hemoglobin A1c 6.3 H 03/21/22 16:20: Troponin I High Sens 14, Triglycerides 70, Cholesterol 179, LDL Cholesterol 108, VLDL Cholesterol 14, HDL Cholesterol 57, TSH 0.29 L 03/22/22 05:00: WBC 11.1 H, RBC 5.00, Hgb 14.0, Hct 42.8, MCV 85.6, MCH 28.0, MCHC 32.7, RDW Std Deviation 50.6 H, RDW Coeff of Cat 16.3 H, Plt Count 308, MPV 9.7, Immature Gran % (Auto) 0.400, Neut % (Auto) 50.4, Lymph % (Auto) 37.2, [place] % (Auto) 9.9, Eos % (Auto) 1.7, Baso % (Auto) 0.4, Absolute Neuts (auto) 5.6, Absolute Lymphs (auto) 4.12, Nucleated RBC % 0 03/22/22 05:00: Sodium 139, Potassium 3.6, Chloride 103, Carbon Dioxide 31.0, Anion Gap 5, BUN 20 H, Creatinine 1.09, Estim Creat Clear Calc 93.07, Est GFR (MDRD) Af Amer 95, Est GFR (MDRD) Non-Af 78, BUN/Creatinine Ratio 18.3, Glucose 101, Calcium 8.3 L Microbiology: Microbiology 03/21/22 10:50 Nasal Secretion SARS-CoV-2 & FLU Antigen (Rapid) - Final Radiography Diagnostic Testing: Radiology Impression Echocardiogram 03/21/22 14:15 Interpretation Summary Left ventricular systolic function is hyperdynamic. The estimated ejection fraction is 75 %. No evidence for diastolic dysfunction. __ Ordering Physician: Amanda Simpson Referring Physician: TAINA POSADAS Performed By: Maria Teresa Castillo, RDJASON D/C Instructions Discharge Diet: Low fat / Low cholesterol and 1800 Calorie Control Diet Discharge Activity: Return to Normal Activity Weight Bearing Status: Weight bearing as tolerated Call your doctor if you observe: Fever of 101 or Higher, Shortness of breath, Dizziness, Swelling in the ankles and Chest pain Meaningful Use Info Meaningful Use Diagnoses (Choose all that apply): None applicable Discharge Plan Admission Admit Date/Time: 03/21/22 12:15 Primary Reason for Your Visit: hypertensive emergency Attending Provider: Amanda Simpson Primary Care Provider: Taina Posadas Instructions Patient Instructions: ED Hypertension, Established Discharge Orders/Prescriptions Prescriptions: New metformin 850 mg tablet 850 mg PO BID Qty: 60 RF: 2 Continued atenolol-chlorthalidone 1 TAB tablet 1 tab PO DAILY RF: 0 cyclobenzaprine 10 MG tablet 10 mg PO TID PRN (Reason: Muscle Spasm) Qty: 20 RF: 0 Referrals / Follow Up: Taina Posadas MD [Primary Care Provider] - Within 2 Weeks Disposition Disposition (needs filled in before D/C Order can be placed): Home, Self Care Charges/Coding Visit Charges Inpatient E&M: 96489 Disch Hosp
[2022-03-22 11:31] LABS: T4 Free Direct 1.02 ng/dL (0.76-1.46)
[2022-03-22 12:02] VITALS: BP 134/82; PULSE 60; RESP 18; TEMP 36.6; O2SAT 96
--- NOTE | 2022-03-22 12:03 | PHA.DC.MC ---
Pharmacy Service has performed discharge medication reconciliation and counseling for this patient. 1. METFORMIN 850MG PO BID The patient's discharge medication list was reviewed for discrepancies and discrepancies were resolved. Home Medications atenolol-chlorthalidone 1 tab PO DAILY 09/14/20 cyclobenzaprine 10 mg PO TID PRN #20 tab 09/14/20 metformin 850 mg PO BID #60 tab 03/22/22 The patient was counseled on the following discharge medications and changes in medications for homegoing were reviewed. The Reason for Use, instructions for use, and potential side effects were reviewed for all new medications. The patient's questions regarding all of their medications were answered. The patient was able to verbally demonstrate an understanding of their discharge medications.
== END 2022-03-22 11:11 | disposition home or self-care (01) ==
LOC: ED 12:21 → PCU 12:30
PROVIDERS: Nurse Practitioner; Admitting Provider Student in an Organized Health Care Education/Training Program; Emergency Provider Emergency Medicine; PCP Family Medicine; Visit Provider Student in an Organized Health Care Education/Training Program
DX: I16.1 Hypertensive emergency (principal); I10 Essential (primary) hypertension; F17.210 Nicotine dependence, cigarettes, uncomplicated; E05.90 Thyrotoxicosis, unspecified without thyrotoxic crisis or storm; Z79.899 Other long term (current) drug therapy; R94.31 Abnormal electrocardiogram [ECG] [EKG]; R06.02 Shortness of breath; H05.20 Unspecified exophthalmos
CPT/HCPCS: 36415; 71045; 80048; 80061; 81001; 83036; 83880; 84439; 84443; 84481; 84484; 85025; 85379; 87428; 93005; 93306; 96361; 96372; 96374; 99218; 99284; 99406; J7030; Q9957; A4216; C8929; G0378; J1940

== ENCOUNTER 2023-05-20 06:24 | Observation (INO) | payer OTHER, SELFPAY ==
[2023-05-20] VITALS (8 sets, daily range): BP systolic 119–149; BP diastolic 66–88; PULSE 48–68; RESP 14–19; TEMP 36–37; O2SAT 96–99; BMI 41.3; BMI 40.9
--- NOTE | 2023-05-20 06:37 | RAD_ITS ---
EXAM: XR CHEST, 1 VIEW CLINICAL INDICATION: chest pain chest pain TECHNIQUE: Frontal view of the chest. COMPARISON: 03/21/2022. FINDINGS: LUNGS AND PLEURAL SPACES: There is increased interstitial prominence bilaterally and there are small bilateral pleural effusions with probably represent CHF. There is a calcified granuloma overlying the right upper lung field. No pneumothorax. HEART: The heart is mildly enlarged. MEDIASTINUM: Central airways and mediastinal contour are unremarkable. BONES/JOINTS: Unremarkable. SOFT TISSUES: Unremarkable. RAD/Chest 1 View (Portable) IMPRESSION: Interstitial prominence and small pleural effusions, probably representing CHF. Electronically Signed: Jose Armando Rosales MD at 6:52 EDT Reading Location ID and State: [facility] / [place] , Service support ,
[2023-05-20] MEDS: Aspirin 81 MG TAB.CHEW 324 MG PO (06:43)
[2023-05-20] MEDS: Nitroglycerin SL (ED/IMG/CATH) 0.4 MG TABLET SL (06:46)
--- NOTE | 2023-05-20 06:47 | EDS_ITS ---
HPI History of Present Illness Chief Complaint: Chest Pain Informant: patient Narrative Narrative: Persistent chest heaviness after waking yesterday with symptoms into his neck. Dyspnea worse with exertion. No pain down the arms. No nausea or diaphoresis. History of hypertension. Less than half pack a day smoker. Denies family history of MIs at a young age. Denies recent travel or surgeries. No history of PE or DVT. States pain constant throughout the day able to sleep woke up with pain only in the chest region today states heaviness 7 out of 10. Quick evaluation record March 2022 for EKG comparisons had admission for chest pains, hospital treated for hypertensive emergency with pleural effusions. Echo EF of 75% no heart motion abnormalities he was started on metformin with a hemoglobin A1c of 6.3. He states he ran out this prescription and has not taken it for over a year. He did follow-up with his PCP. Prior Similar Symptoms: With Prior NC CVD Risk Factors: Positive for Hypertension and Diabetes PE Risk Factors: Negative for Recent Travel/Surgery, Recent Immobilization, Prior DVT or PE or OCP + Smoking + >/=35 PFSH PFSH Medical History Hypertension Hypertension Home Medications atenolol 100 mg-chlorthalidone 25 mg tablet 1 tab PO DAILY 05/20/23 [History Last Taken Unknown] furosemide 20 mg tablet 20 mg PO DAILY 05/20/23 [History Last Taken Unknown] Allergy/AdvReac Type Severity Reaction Status Date / Time No Known Allergies Allergy Verified 05/20/23 06:28 Surgical History Hx of hernia repair Social History Smoking Status: Current every day smoker tobacco type: cigarettes ROS ROS ED Constitutional Constitutional ED: Denies chills, fever(s) or sweats Eyes Eyes: Denies change in vision ENT ENT ED: Denies dysphagia or sore throat Cardiovascular Cardiovascular: Reports chest pain; Denies leg edema, palpitations or racing heartbeat Respiratory/Chest Respiratory/Chest: Reports dyspnea; Denies cough or dyspnea on exertion Gastrointestinal Gastrointestinal: Denies abdominal pain, diarrhea, nausea or vomiting Genitourinary Genitourinary ED: Denies dysuria, hematuria or urinary frequency Musculoskeletal Musculoskeletal: Denies back pain, extremity pain or neck pain Integumentary Denies rash or wounds Neurologic Neurologic: Denies headache(s), paresthesias or weakness EXAM Physical Exam Const Vital Signs: 05/20/23 06:25 05/20/23 06:29 05/20/23 06:40 Temperature 96.8 F L Temperature Source Temporal Pulse Rate 60 Respiratory Rate 14 Respiratory Effort Normal Blood Pressure 146/78 H Blood Pressure Mean 100 Pulse Ox 97 Oxygen Delivery Method Room Air 05/20/23 06:46 Temperature Temperature Source Pulse Rate 53 L Respiratory Rate Respiratory Effort Blood Pressure 149/74 H Blood Pressure Mean Pulse Ox Oxygen Delivery Method Positive well nourished and well developed General Appearance ED: well developed and NAD HEENT Reports moist mucous membranes normocephalic and atraumatic Eyes PERRL, EOMs intact bilaterally and conjunctivae normal General Eye ED: Yes normal appearance of both eyes Neck no lymphadenopathy and supple General: Negative for tenderness Chest Wall inspection of chest normal and palpation of chest normal Chest Narrative: No reproducible tenderness. Chest: Negative for tenderness Resp normal respiratory effort and normal air movement Effort and Inspection: symmetric chest movement; Negative for respiratory distress Cardio regular rate, regular rhythm and no murmurs Peripheral Pulses: pulses 2+ throughout GI normal to inspection, nondistended, normoactive bowel sounds and non-tender Palpation: Negative for guarding or rebound tenderness present Back/Spine no CVA tenderness and no thoracic nor lumbar tenderness Extremity normal to inspection General Extremety ED: Negative for edema or tenderness General Extremity: Negative for edema Neuro oriented x3 and no sensory deficits noted Sensorium / Orientation: awake and alert Skin no rashes or lesions noted and no wounds Heart Score History: Moderately Suspicious ECG: Significant ST-Depression Age: >45 - <65 years Risk Factors: 1 or 2 Risk Factors Troponin: </= Normal Limit Score: 5 MDM MDM MDM Narrative Medical decision making narrative: Interventions / MDM: Differential diagnosis: Chest pain, ACS Diagnosis considered but do not suspect: Pulmonary embolism, however PERC criteria negative. My EKG interpretation: Sinus rhythm rate of 58 ST depressions lateral leads V3 to V6 there is no elevations. T wave inversions inferior lateral leads. Comparison EKG March 2022 similar inversions there is more depressions lateral leads compared to EKG then. Imaging independently reviewed and interpreted by myself: 1 view chest x-ray: Vascular congestion similar to x-ray March 2022. External documents reviewed: Last hospitalization March 2022 with echocardiogram. Test considered but not ordered:N/A ED course: Patient EKG more ST depressions. He has pressure in his chest. Aspirin nitro series ordered. Cardiac work-up. Chest x-ray noted vas congestion. Blood pressure systolic 140 We will add a BNP. Re-evaluation: 0710: Symptom-free after 1 nitro. No respiratory distress. Initial troponin 22. Chest pressure EKG findings, will discuss with medicine for admission. Patient denies any history of stress test in the past. Potassium 3.1, orally replaced. 0715: Spoke with hospitalist Dr. Ross for admission to PCU. Disposition discussed with patient/family/significant other: Patient Case discussed with consulting clinician: Hospitalist This note was generated with [employer] dictation software. It may contain incorrect words, spelling, and punctuation that were not noted in checking the note before signing. Lab Data Attestation: I reviewed the patient's lab results. Labs: Laboratory Results - last 24 hr 05/20/23 05/20/23 06:35 06:35 WBC 8.8 RBC 4.89 Hgb 13.6 Hct 41.5 MCV 84.9 MCH 27.8 MCHC 32.8 RDW Std Deviation 48.2 H RDW Coeff of Cat 15.7 H Plt Count 316 MPV 10.0 Immature Gran % (Auto) 0.300 Neut % (Auto) 56.1 Lymph % (Auto) 32.3 [place] % (Auto) 8.1 Eos % (Auto) 2.6 Baso % (Auto) 0.6 Absolute Neuts (auto) 4.9 Absolute Lymphs (auto) 2.83 Nucleated RBC % 0 Sodium 139 Potassium 3.1 L Chloride 105 Carbon Dioxide 31.0 Anion Gap 3 L BUN 11 Creatinine 1.32 H Estim Creat Clear Calc 75.27 Est GFR (MDRD) Af Amer 75 Est GFR (MDRD) Non-Af 62 BUN/Creatinine Ratio 8.3 L Glucose 110 H Calcium 8.2 L Troponin I High Sens 22 Radiography Diagnostic Testing: Clinical Impression(s) from Imaging Studies Chest X-Ray 05/20/23 06:37 IMPRESSION: Interstitial prominence and small pleural effusions, probably representing CHF. Electronically Signed: Jose Armando Rosales MD at 6:52 EDT Reading Location ID and State: [facility] / [place] , Service support , Discharge Plan Dx/Rx/DC Orders Clinical Impression: Chest pain, Abnormal ECG, Acute hypokalemia Disposition Disposition: Acute Care Hospital [facility]
[2023-05-20 06:48] LABS: Absolute Lymphocyte Count 2.83 X10^3/uL (0.83-4.51); Absolute Neutrophil Count 4.9 X10^3/uL (2.0-7.7); Basophil# 0.05 X10^3/uL; Basophil% 0.6 % (0-1); Eosinophil# 0.23 X10^3/uL; Eosinophils% 2.6 % (0-5); Hematocrit 41.5 % (40-54); Hemoglobin 13.6 g/dL (13.0-16.5); Lymphocyte # 2.83 X10^3/ul (0.83-4.51); Lymphocyte % 32.3 % (19-41); Mean Corp Hgb Conc 32.8 g/dL (32-36); Mean Corpuscular Hgb 27.8 pg (27.0-32.0); Mean Corpuscular Volume 84.9 fL (80-94); Monocyte# 0.71 X10^3/uL; Monocyte% 8.1 % (0-10); NRBC Flagged by Analyzer 0 % (0-5); Neutrophil # 4.91 X10^3/uL (2.7-7.7); Neutrophil % 56.1 % (47-70); Platelet Count 316 K/mm3 (150-450); RBC Distribution Width CV 15.7 % (11.6-14.6); RBC Distribution Width SD 48.2 fl (35.1-43.9); Red Blood Count 4.89 M/mm3 (4.6-6.2); White Blood Count 8.8 K/mm3 (4.4-11.0)
[2023-05-20 07:02] LABS: Anion Gap 3 (5-15); BUN 11 mg/dL (7-18); BUN/Creat Ratio 8.3 RATIO (10-20); Calcium,Total 8.2 mg/dL (8.5-10.1); Chloride 105 mmol/L (98-107); Creatinine, Serum 1.32 mg/dL (0.70-1.30); EST Glomerular Filtration Rate 62 mL/min (>60); Est Glom Filt Rate - Afr Amer 75 mL/min (>60); Estimated Creatinine Clearance 75.27 ml/min; Glucose 110 mg/dL (74-106); Potassium 3.1 mmol/L (3.5-5.1); Sodium Level 139 mmol/L (136-145); Troponin-I HS (w/2H Reflex) 22 pg/mL (3.0-78.0)
[2023-05-20] MEDS: Potassium Chloride Oral Tablet 20 MEQ 40 MEQ PO (07:18)
--- NOTE | 2023-05-20 07:24 | NURSING ---
PCU [place] CHEST PAIN, ABN EKG
[2023-05-20 07:33] LABS: BNP,B-Type NATRIURETIC PEPTIDE 74.1 pg/mL (0-100)
[2023-05-20 08:41] LABS: Reflex Troponin-HS? (from REC) Y
[2023-05-20 09:44] LABS: Troponin-I HS 20 pg/mL (3.0-78.0)
[2023-05-20] MEDS: Furosemide 20 MG Tablet PO (11:37)
[2023-05-20] MEDS: Chlorthalidone 50 MG Tablet 25 MG PO (11:37)
[2023-05-20] MEDS: Atenolol 100 MG Tablet PO (11:38)
[2023-05-20 12:41] LABS: Troponin-I HS 20 pg/mL (3.0-78.0)
--- NOTE | 2023-05-20 12:43 | STRESSREP_ITS ---
Stress Test Report Date: 05/20/2023 Procedure: Pharmacologic stress nuclear imaging study Indications: Chest pain Consent: Per the patient Procedure: The patient underwent pharmacologic (Regadenoson 0.4mg ) evaluation with a peak heart rate of 71 beats per minute (40%predicted maximal heart rate) and a peak blood pressure of 160/102 mmHg. The baseline ECG demonstrated sinus rhythm with left ventricular hypertrophy with repolarization changes. The peak pharmacologic ECG was nondiagnostic because of baseline changes. There were no cardiac dysrhythmias pretest, during pharmacologic infusion, or recovery. There was no complaint of chest discomfort during pharmacologic infusion or recovery. The patient was injected with 13.4 millicuries of technetium 99m Cardiolite and subsequently rest SPECT Cardiolite nuclear imaging was obtained in the horizontal long, vertical long, and short axis views. The patient underwent pharmacologic (Regadenoson) evaluation. The patient was injected with 45 millicuries of technetium 99m Cardiolite and subsequently stress SPECT Cardiolite nuclear imaging was obtained in the horizontal long, vertical long, and short axis views. A gated Cardiolite study at peak stress was obtained. The examination was stopped secondary to completion of protocol. Rest and stress SPECT Cardiolite nuclear imaging status post realignment, normalization, and attenuation correction demonstrate prominent GI intake. There is suspicion for reversible defect in the mid to distal inferior wall. There is end systolic thickening and brightening. The gated Cardiolite study demonstrates myocardial thickening and inward wall motion. The reported LVEF is 81%. Impression: 1. Pharmacologic (Regadenoson) evaluation 2. Peak pharmacologic ECG nondiagnostic. 3. There were no cardiac dysrhythmias pretest, during pharmacologic infusion, or recovery. 5. Possible medium sized mid to distal inferior wall reversible defect however attenuation artifact could not be were ruled. Recommend further evaluation with coronary CT angiogram versus conventional angiography if clinically indicated. 6. The gated Cardiolite study reports an LVEF of 81%. This note was generated with [employer] software. It may contain incorrect words, spelling, and punctuation that were not noted in checking the note before signing.
--- NOTE | 2023-05-20 13:08 | ECHOCS_ITS ---
Reason For Study: Chest Pain Procedure This was a 2D Doppler, Color Flow transthoracic echocardiogram. The study was technically difficult. Contrast injection was performed. Exam performed portable in patient room. Left Ventricle Severe concentric left ventricular hypertrophy. The left ventricular ejection fraction is 75 %. Diastolic function is indeterminate. Right Ventricle Normal RV size. The right ventricular apex is not well visualized. Normal systolic function. Atria The left atrium is severely enlarged. The right atrium is not well visualized. Mitral Valve Trivial mitral valve insufficiency. Tricuspid Valve The tricuspid valve is not well visualized. Trivial tricuspid valve insufficiency. Aortic Valve The aortic valve is not well visualized in the short axis view. There is no aortic stenosis. No aortic valve insufficiency. Pulmonic Valve The pulmonic valve is not well visualized. Great Vessels The aortic root is not well visualized. Pericardium/Pleural No pericardial effusion. Medication Diluted definity 4ml given slow IV push to enhance endocardial definition. MMode/2D Measurements & Calculations LVIDd: 5.5 cm IVSd: 1.8 cm LAV(MOD-bp): 81.4 ml LVIDs: 3.3 cm LVPWd: 1.7 cm FS: 40.1 % LAV(MOD-bp) Indexed: 32.8 ml/m2 LAV(MOD-sp2): 81.8 ml LAV(MOD-sp4): 80.3 ml SV(MOD-sp4): 99.2 ml SV(sp4-el): 98.1 ml LVAd ap4: 35.8 cm2 LVLd ap4: 8.3 cm EDV(MOD-sp4): 137.6 ml EDV(sp4-el): 132.5 ml LVAs ap4: 15.4 cm2 LVLs ap4: 5.9 cm ESV(MOD-sp4): 38.3 ml ESV(sp4-el): 34.3 ml EF(MOD-sp4): 72.1 % EF(sp4-el): 74.1 % LA dimension(2D): 4.5 cm LA A4 area: 24.3 cm2 Time Measurements MV dec time: 0.27 sec Doppler Measurements & Calculations MV E max edgar: 84.0 cm/sec Lat Peak E' Edgar: 7.3 cm/sec Med Peak E' Edgar: 7.4 cm/sec MV A max edgar: 67.4 cm/sec E/E' lat: 11.5 E/E' med: 11.4 MV E/A: 1.2 MV V2 max: 92.8 cm/sec MV P1/2t max edgar: 93.4 cm/sec Ao V2 max: 130.0 cm/sec MV max P.4 mmHg MV P1/2t: 91.6 msec Ao max P.8 mmHg MV V2 mean: 35.9 cm/sec MV dec slope: 298.8 cm/sec2 Ao V2 mean: 84.1 cm/sec MV mean P.73 mmHg Ao mean P.3 mmHg MV V2 VTI: 36.3 cm MVA(P1/2t): 2.4 cm2 Ao V2 VTI: 28.2 cm AV (velocity ratio): 1.1 LV V1 max: 122.8 cm/sec PA V2 max: 84.1 cm/sec TR max edgar: 230.1 cm/sec LV V1 max P.0 mmHg PA V2 mean: 53.3 cm/sec TR max P.2 mmHg LV V1 mean P.5 mmHg LV V1 mean: 87.4 cm/sec LV V1 VTI: 29.6 cm ECHO/Echo Complete W/ Contrast Interpretation Summary The study was technically difficult. Severe concentric left ventricular hypertrophy. Suspect apical hypertrophic car diomyopathy. Consider cardiac MRI for further evaluation if clinically indicated. The left ventricular ejection fraction is 75 %. Diastolic function is indeterminate. The left atrium is severely enlarged. Ordering Physician: Justin Ross Referring Physician: MD Odette Valentin Performed By: Hernandez Peguero RCS
--- NOTE | 2023-05-20 14:20 | CASEMGMT ---
Tertiary facilities in-network with patient's insurance: [facility], [facility], , [facility], [facility], [place].
--- NOTE | 2023-05-20 16:06 | PCM.HP.STD ---
HPI - General General Date of Admission: 05/20/23 HPI Narrative FELECIA RAO, is a 43 M who presents to the hospital with substernal chest pain. He denies radiation of the pain either to his jaw arm or back. He does associate some shortness of breath with the pain. He says it initially started yesterday but was not terrible and would come and go but then this morning he woke up and he had the chest pain again and it was significantly worse than what it was last night. Did have initial troponin of 22 and then repeat a few hours later was 20. He denies any lightheadedness or dizziness. Any states that he has never had chest pain like this before. In the ER nitroglycerin did help [facility] Medical History Hypertension Hypertension Home Medications atenolol 100 mg-chlorthalidone 25 mg tablet 1 tab PO DAILY 05/20/23 [History Last Taken Unknown] furosemide 20 mg tablet 20 mg PO DAILY 05/20/23 [History Last Taken Unknown] Allergy/AdvReac Type Severity Reaction Status Date / Time No Known Allergies Allergy Verified 05/20/23 06:28 Family History (Updated 05/20/23 @ 16:[address] Justin Ross MD) Other Heart disease Surgical History Hx of hernia repair Social History (Updated 05/20/23 @ 08:35 by Laura Santamaria) Smoking Status: Current every day smoker tobacco type: cigarettes ROS Constitutional Constitutional: Denies chills, fatigue, fever(s) or malaise Eyes Eyes: Denies blurry vision ENT HEENT: Denies headache(s) or nasal discharge Cardiovascular Cardiovascular: Reports chest pain; Denies dyspnea on exertion or syncope Respiratory/Chest Respiratory/Chest: Reports shortness of breath at rest; Denies cough or shortness of breath with exertion Gastrointestinal Gastrointestinal: Denies constipation, diarrhea, nausea or vomiting Genitourinary Genitourinary: Denies dysuria Neurologic Neurologic: Denies focal weakness, numbness or tremor(s) Psychiatric Psychiatric: Denies anxiety or depression Vital Signs Vital Signs Vital Signs: 05/20/23 06:25 05/20/23 06:29 05/20/23 06:40 Temperature 96.8 F L Temperature Source Temporal Pulse Rate 60 Respiratory Rate 14 Respiratory Effort Normal Respiratory Depth Respiratory Pattern Blood Pressure 146/78 H Blood Pressure Mean 100 Blood Pressure Source Blood Pressure Position Blood Pressure Location Pulse Ox 97 Oxygen Delivery Method Room Air 05/20/23 06:46 05/20/23 07:19 05/20/23 08:41 Temperature 96.8 F L 98.6 F Temperature Source Temporal Oral Pulse Rate 53 L 63 54 L Respiratory Rate 19 H 14 Respiratory Effort Respiratory Depth Respiratory Pattern Blood Pressure 149/74 H 129/83 H 146/88 H Blood Pressure Mean 98 107 Blood Pressure Source Monitor Blood Pressure Position Semi-Fowlers Blood Pressure Location Right Arm Pulse Ox 97 98 Oxygen Delivery Method Room Air Room Air 05/20/23 08:52 05/20/23 15:17 05/20/23 15:20 Temperature 98.1 F Temperature Source Oral Pulse Rate 48 L Respiratory Rate 15 Respiratory Effort Normal Non-Labored Normal Non-Labored Respiratory Depth Normal Respiratory Pattern Normal Blood Pressure 119/67 Blood Pressure Mean 84 Blood Pressure Source Monitor Blood Pressure Position Semi-Fowlers Blood Pressure Location Right Arm Pulse Ox 99 Oxygen Delivery Method Room Air Room Air Room Air Weight Weight: 293 lb 10.491 oz Body Mass Index (BMI) 40.9 Physical Exam Narrative General: Alert, Oriented x3, Cooperative, No apparent distress, morbidly obese HEENT: Atraumatic, PERRLA, EOMI, Normocephalic Oral: Moist Mucosa Neck: Supple, No JVD Lungs: Diminished, Normal air movement, No rhonchi, No wheeze, No rales Cardiovascular: Regular rate, Regular Rhythm, Normal S1, Normal S2, No murmurs Abdomen: Soft, Non Tender, Non-Distended, No Hepato-splenomegaly Extremities: No edema, Capillary Refill Less than 3 Seconds Skin: No rashes, No breakdown Musculoskeletal: No Tenderness to Palpation of Joints or Extremities Neurological: Cranial nerves II-XII grossly intact, Motor Exam 5/5 strength throughout, Sensory exam intact to light touch and pain Psych/Mental Status: Normal Affect, Appropriate Results Lab / Micro Data Result Diagrams: 05/20/23 06:35 05/20/23 06:35 Labs: Laboratory Results - last 24 hr 05/20/23 06:35: WBC 8.8, RBC 4.89, Hgb 13.6, Hct 41.5, MCV 84.9, MCH 27.8, MCHC 32.8, RDW Std Deviation 48.2 H, RDW Coeff of Cat 15.7 H, Plt Count 316, MPV 10.0, Immature Gran % (Auto) 0.300, Neut % (Auto) 56.1, Lymph % (Auto) 32.3, [place] % (Auto) 8.1, Eos % (Auto) 2.6, Baso % (Auto) 0.6, Absolute Neuts (auto) 4.9, Absolute Lymphs (auto) 2.83, Nucleated RBC % 0 05/20/23 06:35: Sodium 139, Potassium 3.1 L, Chloride 105, Carbon Dioxide 31.0, Anion Gap 3 L, BUN 11, Creatinine 1.32 H, Estim Creat Clear Calc 75.27, Est GFR (MDRD) Af Amer 75, Est GFR (MDRD) Non-Af 62, BUN/Creatinine Ratio 8.3 L, Glucose 110 H, Calcium 8.2 L, Troponin I High Sens 22 05/20/23 06:35: B-Natriuretic Peptide 74.1 05/20/23 09:09: Troponin I High Sens 20 05/20/23 12:06: Troponin I High Sens 20 Radiology Impression Chest X-Ray 05/20/23 06:37 IMPRESSION: Interstitial prominence and small pleural effusions, probably representing CHF. Electronically Signed: Jose Armando Rosales MD at 6:52 EDT Reading Location ID and State: [address] [place] [address] , Service support , Assessment & Plan Assessment/Plan (1) Chest pain: PLAN: Plan 1. Chest pain/HTN ? We will obtain a stress test ? We will obtain serial troponins ? EKG does not appear significantly different than his EKG from about a year ago ? Chest pain is currently resolved ? Can resume his home blood pressure medications ? Would likely benefit from an aspirin and will check a lipid panel 2. Subclinical hypothyroidism ? Previous TSH was low and his T3 and T4 were normal ? We will recheck labs and if they are still at baseline would recommend outpatient follow-up with endocrinology DVT: Ambulation 75 minutes was spent on direct patient care as well as chart review and collaboration with colleagues Charges/Coding Visit Charges Inpatient E&M: 52034 Init Hosp L3
[2023-05-20 17:02] LABS: Cholesterol 137 mg/dL (200); Free T3 2.7 pg/mL (2.18-3.98); High Density Lipoprotein 35 mg/dL; T4 Free Direct 0.95 ng/dL (0.76-1.46); Thyroid Stim Hormone (TSH) 0.51 uIU/mL (0.358-3.74); Triglycerides 129 mg/dL; Very Low Density Lipoprotein 26 mg/dL (5-40)
[2023-05-20] MEDS: 0.9% Saline Lock 10 ML Syringe IV (22:10)
[2023-05-21 03:08] VITALS: BP 128/75; PULSE 48; RESP 16; TEMP 36.5; O2SAT 96
[2023-05-21 03:10] VITALS: PULSE 48; O2SAT 96
[2023-05-21] MEDS: Chlorthalidone 50 MG Tablet 25 MG PO (08:21)
[2023-05-21] MEDS: Furosemide 20 MG Tablet PO (08:21)
[2023-05-21] MEDS: Atenolol 100 MG Tablet PO (08:21)
[2023-05-21 08:32] VITALS: BP 143/82; PULSE 54; RESP 18; TEMP 36.6
--- NOTE | 2023-05-21 10:15 | DCINST_ITS ---
Discharge Instructions Diet Discharge Diet: Low fat / Low cholesterol Activity Discharge Activity: Return to Normal Activity Dressing / Incision Call your doctor if you observe: Fever of 101 or Higher, Shortness of breath, Dizziness, Fainting spells, Swelling in the ankles, Chest pain and Increased palpitations (irregular heartbeat) Follow Up Care Test Results: Test results from this visit will be discussed in further detail at your follow- up appointment, if applicable. Discharge Plan Admission Admit Date/Time: 05/20/23 07:17 Attending Provider: Justin Ross Primary Care Provider: Valentin Pino Discharge Orders/Prescriptions Prescriptions: Continued atenolol-chlorthalidone 100-25 mg tablet 1 tab PO DAILY furosemide 20 mg tablet 20 mg PO DAILY Referrals / Follow Up: Radha Lee MD [Med Staff - Active Staff] - Within 1 Month (first available) Valentin Pino MD [Primary Care Provider] - Within 1 Week Valentin Pino MD [[facility]] - Disposition Disposition (needs filled in before D/C Order can be placed): Home, Self Care
--- NOTE | 2023-05-21 10:21 | PHA.DC.MR ---
Pharmacy Service has performed discharge medication reconciliation for this patient. The patient's discharge medication list was reviewed for discrepancies and discrepancies were resolved. Home Medications atenolol 100 mg-chlorthalidone 25 mg tablet 1 tab PO DAILY 05/20/23 furosemide 20 mg tablet 20 mg PO DAILY 05/20/23
[2023-05-21 10:24] VITALS: BP 143/82; PULSE 56; RESP 18; TEMP 36.6; O2SAT 97
--- NOTE | 2023-05-21 10:51 | NURSING ---
Patient discharged home per orders. Orders reviewed with patient who verbalized understanding.
--- NOTE | 2023-05-21 12:49 | DS.PCM_ITS ---
Providers Date of Admission: 05/20/23 Primary Care Physician: Dr. Valentin Pino MD Reason For Visit: CHEST PAIN Diagnosis Discharge Diagnosis (1) Chest pain: Status: Acute Code(s): R07.9 - Chest pain, unspecified Medications at Discharge Home Medications atenolol 100 mg-chlorthalidone 25 mg tablet 1 tab PO DAILY blood pressure 05/20/23 furosemide 20 mg tablet 20 mg PO DAILY diuretic 05/20/23 Hospital Course Operations None Procedures 2-D Echocardiogram and Stress test Summary of Care Provided Minutes Spent on Discharge: 35 Hospital Course: Per HPI: FELECIA RAO, is a 43 M who presents to the hospital with substernal chest pain.? He denies radiation of the pain either to his jaw arm or back.? He does associate some shortness of breath with the pain.? He says it initially started yesterday but was not terrible and would come and go but then this morning he woke up and he had the chest pain again and it was significantly worse than what it was last night.? Did have initial troponin of 22 and then repeat a few hours later was 20.? He denies any lightheadedness or dizziness.? Any states that he has never had chest pain like this before.? In the ER nitroglycerin did help Hospital Course: 1. Chest pain/HTN?43-year-old male with a family history of heart disease presents to the hospital with chest pain. He did not notice it with any specific exertion, but he noticed it started the day before admission and then was worse the morning of admission. Initial troponin was unremarkable and follow-up troponins improved. Given his history a stress test was obtained which was fairly unremarkable. In discussion with cardiology it was felt that there was bowel attenuation that was leading to a false positive. He did have a hyperdynamic LV so an echo was obtained which does show some concentric left ventricular hypertrophy. This was also discussed with cardiology who recommen ded outpatient follow-up with either coronary artery CT angiogram or cardiac MRI. His blood pressures are fairly controlled here in the hospital in the 130s to 140s systolic I do recommend he follow-up with his PCP as an outpatient and if they remain at that level then would consider additional blood pressure medications given the findings on his echo. This morning he denied any significant chest pain. I discussed with him the plan for possible discharge she expressed understanding of the risk benefits going home and would like to go home today. Physical Exam Narrative General: Alert, Oriented x3, Cooperative, No apparent distress, morbidly obese HEENT: Atraumatic, PERRLA, EOMI, Normocephalic Oral: Moist Mucosa Neck: Supple, No JVD Lungs: Diminished, Normal air movement, No rhonchi, No wheeze, No rales Cardiovascular: Regular rate, Regular Rhythm, Normal S1, Normal S2, No murmurs Abdomen: Soft, Non Tender, Non-Distended, No Hepato-splenomegaly Extremities: No edema, Capillary Refill Less than 3 Seconds Skin: No rashes, No breakdown Musculoskeletal: No Tenderness to Palpation of Joints or Extremities Neurological: Cranial nerves II-XII grossly intact, Motor Exam 5/5 strength throughout, Sensory exam intact to light touch and pain Psych/Mental Status: Normal Affect, Appropriate Weight / BMI Weight Weight: 293 lb 10.491 oz Body Mass Index (BMI) 40.9 ABG / Lab / Microbiology Data Result Diagrams: 05/20/23 06:35 05/20/23 06:35 Laboratory: Laboratory Results - last 24 hr 05/20/23 12:06: Triglycerides 129, Cholesterol 137, LDL Cholesterol 76, VLDL Cholesterol 26, HDL Cholesterol 35 L, TSH 0.51, Free T4 0.95, Free T3 pg/dL 2.7 Radiography Diagnostic Testing: Radiology Impression Echocardiogram 05/20/23 13:08 Interpretation Summary The study was technically difficult. Severe concentric left ventricular hypertrophy. Suspect apical hypertrophic cardiomyopathy. Consider cardiac MRI for further evaluation if clinically indicated. The left ventricular ejection fraction is 75 %. Diastolic function is indeterminate. The left atrium is severely enlarged. Ordering Physician: Justin Ross Referring Physician: MD Odette Valentin Performed By: Hernandez Peguero RCS D/C Instructions Discharge Diet: Low fat / Low cholesterol Call your doctor if you observe: Fever of 101 or Higher, Shortness of breath, Dizziness, Fainting spells, Swelling in the ankles, Chest pain and Increased palpitations (irregular heartbeat) Meaningful Use Info Meaningful Use Diagnoses (Choose all that apply): None applicable Discharge Plan Admission Admit Date/Time: 05/20/23 07:17 Attending Provider: Justin Ross Primary Care Provider: Valentin Pino Discharge Orders/Prescriptions Prescriptions: Continued atenolol-chlorthalidone 100-25 mg tablet 1 tab PO DAILY furosemide 20 mg tablet 20 mg PO DAILY Referrals / Follow Up: Radha Lee MD [Med Staff - Active Staff] - Within 1 Month (first available) Valentin Pino MD [Primary Care Provider] - Within 1 Week Valentin Pino MD [[facility]] - Disposition Disposition (needs filled in before D/C Order can be placed): Home, Self Care Charges/Coding Visit Charges Inpatient E&M: 90908 Disch Hosp >30min
== END 2023-05-21 10:53 | disposition home or self-care (01) ==
LOC: ED 07:20 → PCU 07:38
PROVIDERS: Admitting Provider Family Medicine; Emergency Provider Emergency Medicine; PCP Family Medicine; Visit Provider Family Medicine
DX: R07.89 Other chest pain (principal); E11.9 Type 2 diabetes mellitus without complications; F17.210 Nicotine dependence, cigarettes, uncomplicated; R94.31 Abnormal electrocardiogram [ECG] [EKG]; I10 Essential (primary) hypertension; E87.6 Hypokalemia; R06.02 Shortness of breath; Z79.84 Long term (current) use of oral hypoglycemic drugs; Z79.899 Other long term (current) drug therapy; R94.6 Abnormal results of thyroid function studies
CPT/HCPCS: 36415; 71045; 78452; 80048; 80061; 83880; 84439; 84443; 84481; 84484; 85025; 93005; 93017; 93306; 99221; 99285; 99406; A9500; Q9957; A4216; C8929; G0378; J2785